=== PATIENT | female | born 1975 | race Two or more races ===

== ENCOUNTER 2022-03-09 11:19 | Emergency (ER) | payer MEDICAID ==
[~2022-03-09] VITALS: Ht 167.6 cm; Wt 86.1 kg
[2022-03-09 11:54] LABS: Basophils # (auto) 0.1 10 ^3/uL (0-0.2); Basophils % (auto) 1.2 % (0.0-2.0); Eosinophils # (auto) 0.2 10 ^3/uL (0-0.8); Eosinophils % (auto) 2.8 % (0.0-7.0); Hematocrit 37.5 % (36.0-46.0); Hemoglobin 12.4 g/dL (12.2-16.2); Lymphocytes # (auto) 2.2 10 ^3/uL (0.4-5.4); Lymphocytes % (auto) 31.4 % (10.0-50.0); Mean Corpuscular Hemoglobin 29.3 pg (28.0-32.0); Mean Corpuscular Volume 88.7 fL (80.0-100.0); Monocytes # (auto) 0.4 10 ^3/uL (0-1.3); Monocytes % (auto) 5.8 % (0.0-12.0); Neutrophils # (auto) 4.1 10 ^3/uL (1.6-8.6); Neutrophils % (auto) 58.8 % (37.0-80.0); Red Blood Cells 4.22 10^6/uL (4.0-5.20)
[2022-03-09 12:31] LABS: Albumin 3.6 g/dL (3.4-5.0); Calcium 8.9 mg/dL (8.5-10.1); Potassium 4.2 mmol/L (3.5-5.1)
[2022-03-09 12:45] LABS: BUN/Creatinine Ratio 12.1; Bilirubin, Total 0.5 mg/dL (0.2-1.0); Total Protein 7.4 g/dL (6.4-8.2)
[2022-03-09 13:18] VITALS: BP 111/40
== END 2022-03-09 13:37 | disposition home or self-care (01) ==
LOC: ER 11:19
DX: R07.89 Other chest pain (principal); I48.91 Unspecified atrial fibrillation; Z86.73 Personal history of transient ischemic attack (TIA), and cerebral infarction without residual deficits
CPT/HCPCS: 36415; 70450; 71045; 80053; 84484; 85025; 93005

== ENCOUNTER → 2022-03-29 | Outpatient (CLI) | payer MEDICAID | END | disposition home or self-care (01) | LOC: XYW 09:54 | PROVIDERS: ATTEND Internal Medicine | DX: I48.0 Paroxysmal atrial fibrillation (principal) | CPT/HCPCS: 93306 ==

== ENCOUNTER → 2022-04-10 | Outpatient (CLI) | payer MEDICAID ==
[2022-04-10 09:00] VITALS: BP 116/80
== END | disposition home or self-care (01) ==
LOC: XYW 07:46
PROVIDERS: ATTEND Internal Medicine
DX: I48.0 Paroxysmal atrial fibrillation (principal); I10 Essential (primary) hypertension; R63.8 Other symptoms and signs concerning food and fluid intake; D68.69 Other thrombophilia; Q21.10 Atrial septal defect, unspecified; Z68.31 Body mass index [BMI] 31.0-31.9, adult; Z86.73 Personal history of transient ischemic attack (TIA), and cerebral infarction without residual deficits
CPT/HCPCS: 78452; 93017; A9500